=== PATIENT | female | born 1980 | race American Indian/Alaskan Native ===

== ENCOUNTER 2016-12-25 10:30 | Inpatient (IN) | payer MEDICAID ==
[2017-01-01] MEDS ORDERED: cefOXitin 2 GM Vial ONE (06:36)
[2017-01-01] MEDS ORDERED: fentaNYL 250 MCG/5 ML SDV ONE ×3 (07:14→10:36)
[2017-01-01] MEDS ORDERED: Ondansetron 4 MG/2 ML SDV ONE (07:15)
[2017-01-01] MEDS ORDERED: Neostigmine Methylsulfate 1 MG/ML 5 ML Syringe ONE (07:15)
[2017-01-01] MEDS ORDERED: Succinylcholine/Normal Saline 200 MG/10 ML Syringe ONE (07:15)
[2017-01-01] MEDS ORDERED: Rocuronium 50 MG/5 ML Vial ONE ×2 (07:15→10:14)
[2017-01-01] MEDS ORDERED: Dexamethasone 4 MG/ML SDV ONE (07:15)
[2017-01-01] MEDS ORDERED: Propofol 200 MG/20 ML SDV ONE (07:15)
[2017-01-01] MEDS ORDERED: Lactated Ringers 1,000 ML ONE (07:19)
[2017-01-01] MEDS ORDERED: Scopolamine 1.5 MG Transdermal Patch TRDERM PRN (07:30)
[2017-01-01] MEDS ORDERED: Celecoxib 200 MG Cap PO ONE (07:30)
[2017-01-01] MEDS ORDERED: Dextrose 5%-Lactated Ringers 1,000 ML IV SCH (07:30)
[2017-01-01] MEDS ORDERED: Acetaminophen 500 MG Tab PO ONE (07:30)
[2017-01-01] MEDS ORDERED: Gabapentin 300 MG Cap PO ONE (07:30)
[2017-01-01] MEDS ORDERED: Lidocaine 2% 100 MG/5 ML Syringe IVPUSH ONE (09:00)
[2017-01-01] MEDS ORDERED: cefOXitin 2 GM in Sodium Chloride 0.9% 50 ML IV ONE (09:00)
[2017-01-01] MEDS ORDERED: Ketamine 500 MG/5 ML MDV IV SCH (09:00)
[2017-01-01] MEDS ORDERED: Ropivacaine 60 ML, Dexamethasone 8 MG, EPINEPHrine 0.4 MG, Sodium Chloride 0.9% 17.6 ML NERVRT SCH ×4 (09:00)
[2017-01-01] MEDS ORDERED: Labetalol 20 MG/4 ML Syringe ONE (11:07)
[2017-01-01] MEDS ORDERED: hydrOXYzine HCl 50 MG/ML SDV IM ONE (12:02)
[2017-01-01] MEDS ORDERED: HYDROmorphone 1 MG/ML Syringe IVPUSH PRN (12:45)
[2017-01-01] MEDS: Lidocaine 0.4%/D5W 2 GM/500 ML BAG IV SCH (13:00)
[2017-01-01] MEDS ORDERED: SCOPOLAMINE PATCH ASK TOP SCH (13:18)
[2017-01-01] MEDS ORDERED: hydrOXYzine HCl 50 MG/ML SDV IM PRN (13:18)
[2017-01-01] MEDS ORDERED: Metoclopramide 10 MG/2 ML SDV IVPUSH PRN (13:18)
[2017-01-01] MEDS ORDERED: Ondansetron 4 MG/2 ML SDV IVPUSH PRN (13:18)
[2017-01-01] MEDS ORDERED: diphenhydrAMINE 50 MG/ML SDV IVPUSH PRN (13:18)
[2017-01-01] MEDS ORDERED: Insulin Aspart 100 Units/ML 3 ML Pen SUBCUT PRN (13:18)
[2017-01-01] MEDS: Labetalol 20 MG/4 ML Syringe IVPUSH PRN ×2 (13:20→14:40)
[2017-01-01] MEDS: Pantoprazole 40 MG Vial IVPUSH SCH (13:59)
[2017-01-01] MEDS: Gabapentin 250 MG/5 ML Solution ML 470 ML Bottle PO SCH ×2 (13:59→20:37)
[2017-01-01] MEDS: Dextrose 5%-Lactated Ringers 1,000 ML IV SCH (14:43)
[2017-01-01] MEDS ORDERED: MVI, Adult with Vitamin K 10 ML, Thiamine 200 MG, Chromium/Copper/Mang/Selen/Zn 1 ML in... IV SCH ×4 (16:00)
[2017-01-01] MEDS: cefOXitin 2 GM in Sodium Chloride 0.9% 50 ML IV SCH ×2 (17:26→22:11)
[2017-01-01] MEDS: Acetaminophen Soln 650 MG/20.3 ML UD Cup PO SCH ×2 (17:27→22:11)
[2017-01-01] MEDS: Heparin Sodium 5,000 Units/ML Vial SUBCUT SCH (17:27)
[2017-01-02] MEDS: Dextrose 5%-Lactated Ringers 1,000 ML IV SCH (00:19)
[2017-01-02] MEDS: Labetalol 20 MG/4 ML Syringe IVPUSH PRN ×4 (01:11→12:19)
[2017-01-02] MEDS: Heparin Sodium 5,000 Units/ML Vial SUBCUT SCH ×3 (02:04→18:12)
[2017-01-02] MEDS: Lidocaine 0.4%/D5W 2 GM/500 ML BAG IV SCH (02:05)
[2017-01-02] MEDS: cefOXitin 2 GM in Sodium Chloride 0.9% 50 ML IV SCH ×2 (03:09→09:05)
[2017-01-02] MEDS ORDERED: Iohexol 647 MG/ML 50 ML SDV PO STA (03:58)
[2017-01-02] MEDS: Acetaminophen Soln 650 MG/20.3 ML UD Cup PO SCH ×4 (04:25→21:01)
[2017-01-02] MEDS ORDERED: Dextrose 5%-Lactated Ringers 1,000 ML IV SCH (07:15)
[2017-01-02] MEDS ORDERED: Ondansetron 4 MG Tab.DIS PO PRN (07:17)
--- NOTE | 2017-01-02 07:47 | PN ---
DATE OF SERVICE: 01/02/2017 SUBJECTIVE: Radha is postop day #1, her upper GI was normal, this morning, she has been up ambulating. Pain has been controlled. She did receive Dilaudid x1 IV, hemoglobin A1c was 6.4, ANTHONY drain put out 130 mL of a light pink serous drainage. She received labetalol 5 times since she has been out of surgery. Blood pressures were elevated in the 150s to 160s over 90s. REVIEW OF SYSTEMS: Remainder of review of systems negative for any pertinent positives and negatives. OBJECTIVE: GENERAL: Radha Ring is a pleasant 36-year-old female. VITAL SIGNS: TPR is 98.7, 94, 18, blood pressure 168/93. HEENT: Negative. NECK: Supple. HEART: Regular rate and rhythm. LUNGS: Clear. ABDOMEN: Dressings dry and intact. Abdominal binder is on. ANTHONY drain intact. EXTREMITIES: Without peripheral edema. ASSESSMENT: 1. Laparoscopic Susana-en-Y gastric bypass surgery, liver biopsy, repair of diaphragmatic hernia, and small bowel resection for morbid obesity, hepatomegaly, diaphragmatic hernia, foreshortened small bowel mesentery on 01/01/2017. 2. Diabetes type 2, uncontrolled. 3. Depression. PLAN: 1. Vital signs every 4 hours. 2. Step-2 gastric bypass diet without cereal. 3. Discontinue continuous pulse ox and cardiac monitoring after lidocaine is in. Dressing off, may shower. Decrease IV to 40 mL/hour, convert IV to saline lock if oral intake is adequate, and Lexapro 20 mg p.o. daily. 4. Good pulmonary toilet encouraged. 5. We will evaluate p.r.n. or in a.m. Bertha Sena PA-C /[id number]
[2017-01-02] MEDS: Celecoxib 200 MG Cap PO SCH (08:14)
--- NOTE | 2017-01-02 08:46 | CR ---
UGI wo KUB HISTORY: eval R-Y GBP FINDINGS: After administration of oral contrast, upright views were obtained. Post operative changes gastric bypass. Surgical drains in place. No evidence for leak. Contrast passes freely into proxima l small bowel loops. IMPRESSION: No evidence for leak or obstruction.
[2017-01-02] MEDS: SCOPOLAMINE PATCH CHECK TOP SCH (09:01)
[2017-01-02] MEDS: Escitalopram 20 MG Tab PO SCH (09:06)
[2017-01-02] MEDS: Gabapentin 250 MG/5 ML Solution ML 470 ML Bottle PO SCH ×3 (09:06→21:01)
[2017-01-02] MEDS: Magnesium Hydroxide 400 MG/5 ML Susp 30 ML Cup PO PRN (11:11)
[2017-01-02] MEDS: Sennosides 8.6 MG Tab PO PRN (11:50)
[2017-01-02] MEDS ORDERED: MVI, Adult with Vitamin K 10 ML, Thiamine 200 MG, Chromium/Copper/Mang/Selen/Zn 1 ML in... IV SCH ×4 (16:00)
[2017-01-02] MEDS: Pantoprazole 40 MG Vial IVPUSH SCH (16:08)
[2017-01-03] MEDS: Heparin Sodium 5,000 Units/ML Vial SUBCUT SCH ×2 (03:08→10:23)
[2017-01-03] MEDS: Acetaminophen Soln 650 MG/20.3 ML UD Cup PO SCH ×2 (03:08→10:23)
[2017-01-03] MEDS ORDERED: Cyanocobalamin (Vitamin B12) 1,000 MCG/ML SDV IM ONE (09:00)
[2017-01-03] MEDS: SCOPOLAMINE PATCH CHECK TOP SCH (09:04)
[2017-01-03] MEDS: Escitalopram 20 MG Tab PO SCH (09:04)
[2017-01-03] MEDS: Celecoxib 200 MG Cap PO SCH (09:04)
[2017-01-03] MEDS: Gabapentin 250 MG/5 ML Solution ML 470 ML Bottle PO SCH ×2 (09:04→14:11)
[2017-01-03] MEDS: Magnesium Hydroxide 400 MG/5 ML Susp 30 ML Cup PO PRN (09:12)
[2017-01-03] MEDS: Sennosides 8.6 MG Tab PO PRN (09:12)
[2017-01-03 10:50] VITALS: BP 152/86
--- NOTE | 2017-01-04 01:57 | DISCH ---
ADMISSION DIAGNOSES: Morbid obesity, prediabetic, and depression. DISCHARGE DIAGNOSES: 1. Laparoscopic Susana-en-Y gastric bypass surgery, liver biopsy, repair of diaphragmatic hernia, small bowel resection for morbid obesity, hepatomegaly, and diaphragmatic hernia, foreshortened small bowel mesentery, morbid obesity, and hepatomegaly. Date of surgery 01/01/2017. 2. Diabetes type 2, uncontrolled. 3. Depression. HISTORY: Radha Barakat is a 36-year-old female with longstanding history of morbid obesity and increasingly comorbidities. After preoperative evaluation and discussion of possible risks and possible complications, she wished to proceed with surgical procedure. HOSPITAL COURSE: Radha had her surgery on 01/01/2017. She had no operative complications on postop day. On postop day #1, she did receive 5 doses of labetalol for elevated blood pressure. Her upper GI was normal. She received dietary instruction. Pain was controlled. Her activity was good. On postop day #2, blood sugars were 130 and 118 and she was able to be discharged home. PHYSICAL EXAMINATION: GENERAL: Radha Ring is a 36-year-old female. VITAL SIGNS: Height is 5 feet 6.5 inches, weight is 341 pounds. TPR 96.3, 81, 16, and blood pressure 132/66. HEENT: Negative. NECK: Supple. HEART: Regular rate and rhythm. LUNGS: Clear. ABDOMEN: Sutures in place. 4x4s over ANTHONY drain site and abdominal binder is on. EXTREMITIES: Without peripheral edema. DISPOSITION: Discharged to home. CONDITION: Stable and improving. FOLLOWUP APPOINTMENT: With Bertha Sena PA-C, on 01/13/2017 at 10:00 a.m. DISCHARGE MEDICATIONS: Home medications: 1. Tylenol 650 mg p.o. liquid q.6 hours for 2 weeks. 2. Celebrex 200 mg p.o. daily, #14. 3. Zofran ODT 4 mg sublingual q.4 hours p.r.n. nausea, #30. 4. Milk of magnesia 30 mL, two were sent home with patient. 5. Sennosides 8.6 mg p.o. b.i.d. 6. Multivitamin chewable 1 b.i.d. 7. Vitamin B12 at 1000 mcg sublingual daily. She is to continue Lexapro 20 mg p.o. daily. Discontinue the calcium, vitamin D3, ibuprofen, and metformin. DIET: After discharge, step-2 gastric bypass diet without cereal for 2 weeks. ACTIVITY: No lifting greater than 10 pounds for 2 weeks. Activity, walk 8 times daily for short distance. DISCHARGE INSTRUCTIONS: Shower/bathing, may shower. Keep incision clean and dry. Wear abdominal binder for 2 weeks, and then as tolerated. SPECIAL INSTRUCTIONS: Notify provider if any fever, increased pain, nausea, or vomiting. Use incentive spirometer 10 times every hour while awake.
--- NOTE | 2017-01-07 07:40 | OR ---
CORRECTED COPY DATE OF PROCEDURE: 01/01/2017 PREOPERATIVE DIAGNOSIS: Morbid obesity. POSTOPERATIVE DIAGNOSES: 1. Morbid obesity. 2. Marked hepatomegaly. 3. Paraesophageal diaphragmatic hernia. 4. Foreshortened small bowel mesentery requiring bowel resection to allow satisfactory mobility of jejunojejunostomy. OPERATIVE PROCEDURE: 1. Laparoscopic Susana-en-Y gastric bypass with long limb gastroenterostomy (18226). 2. Needle liver biopsy (94633). 3. Repair of paraesophageal diaphragmatic hernia (87565). 4. Small bowel resection (33488). ANESTHESIA: General plus a transversus abdominis plane block. FLOTATION TANK OPERATOR: Bertha Sena PA-C and Ida ANAYA student. INDICATION FOR PROCEDURE: A 36-year-old presenting with longstanding morbid obesity and increasingly significant comorbidities. After preoperative evaluation and discussion, she wished to proceed with a gastric bypass procedure. Potential risks of the procedure including bleeding, infection, leaks from various GI tract closures, problems with bowel obstruction over time as well as possibility of cardiopulmonary, septic, or hemorrhagic complications leading to were discussed, and the patient wishes to proceed. DETAILS OF PROCEDURE: The patient was taken to the operating room after general endotracheal anesthesia was induced, was placed in a lithotomy position. The abdomen was then prepped and draped, and using continuous ultrasound guidance, bilateral subcostal transversus abdominis plane blocks were placed in the subcostal location. Upon completion of that, oral gastric tube was placed, and the area was prepped and draped. At 15 cm inferior, 5 cm left of xiphoid process, a transverse incision was made and the peritoneal cavity was entered under direct vision evacuation with an Optiview trocar, inflated to 15 mmHg pressure of CO2. Laparoscope was then reinserted, and no underlying trocar insertion site injuries were seen. Following this, 5 additional trocars were placed across her mid abdomen and general exploration was undertaken. The patient was noted to have marked hepatomegaly with liver volume being roughly 2 to 3 times normal. Liver grossly fatty infiltrated. Miguel-Cut needle biopsies were obtained from left lobe of the liver. Minimal bleeding from biopsy sites was controlled with electrocautery. At this point, the omentum was divided in the midline up to the level of the transverse colon. This allowed identification of the small bowel to the ligament of Treitz. Small bowel was then traced out 200 cm distal to that point, it was divided transversely with a ANNA stapler. Small bowel was then traced out additional 200 cm where the [id number] enteroenterostomy was accomplished with internal firing of the Endo-ANNA 60 mm stapler. The common opening was then closed transversely with the same stapler and angles were anastomosed and mesenteric defect approximated with some 0 Ethibond stitch along with fibrin sealant. During the formation of this anastomosis, it became evident that the mesentery was fairly foreshortened and the jejunojejunostomy if made using standard approach would be likely insufficiently mobile or at least putting the gastrojejunostomy at risk due to tension; given this a roughly 12 cm segment of the biliopancreatic limb was resected distally thus being in the abdomen, then divided with a ANNA stapler and the mesentery divided with Harmonic scalpel. The specimen was delivered from the field and subsequent anastomosis was referred to above was completed. This resulted in a very nicely mobile jejunojejunostomy with the Susana limb, then easily coming up into the area of the esophagogastric junction with minimal tension. At this point, the liver was retracted anteriorly, and the patient was noted to have a moderate-sized paraesophageal diaphragmatic hernia with prolapse of portion of the gastric fundus and perigastric fat in a plane anterior to the course of the esophagus. This was reduced and the peritoneum over the hernia was incised and reflected downward and an anterior repair of the diaphragmatic hernia was accomplished with 0-Ethibond sutures reinforced with PTFE pledgets. At this point, the gastrointestinal catheter was inflated to 15 mL and pulled up snugly against the EG junction, gastric wall over the apex balloon was then marked with electrocautery, and balloon catheter deflated and pulled up from the esophagus. The lesser omental tissue adjacent to gastric cardia was then incised allowing dissection behind the stomach at that level. The pouch formation was then initiated with a transverse firing of the ANNA stapler at the level of the cauterize britt in the gastric cardia and then completed with 2 additional firings of ANNA stapler up to and through the angle of His. Upon completion of the pouch, both staple lines were noted to be intact. The anvil of a 21-mm EEA stapler was attached to [place] sump type tube. The latter was brought down through the mouth and taken out through a small opening in the gastric pouch, allowing the anvil likewise to be pulled down to within the gastric pouch. The Susana limb was then opened and the body of the EEA stapler passed several cm into the Susana limb brought up the anvil area uniting with the screening gastrojejunostomy. Upon removal of the stapler, double donuts of mucosa were noted and the small bowel was closed off with a vascular staple line. Gastrojejunostomy was reinforced with some 3-0 Vicryl seromuscular stitch along with fibrin sealant. Leak test was accomplished with injection of 120 mL of air in the gastric pouch while submerged with cefoxitin-containing saline solution. No leaks were identified. Two Jacques-Adams drains were then placed adjacent to the gastrojejunostomy taken out subcostal trocar sites with no further problems noted. Trocars were removed. The peritoneal cavity was deflated. The incision was closed with some 6-0 Vicryl skin stitch. Drains were affixed with some 4-0 Vicryl stitch and the patient was taken to the recovery room in satisfactory condition. There were no other complications. Physician clinical project assistant, Bertha Sena, played an essential role in assisting in this case, helping to position the patient, retract structures as needed, as well as suturing and cutting sutures as indicated, her presence improved the patient's safety and decreased operative time. Quinn Looney MD /[id number]
== END 2017-01-03 14:20 | disposition home or self-care (01) | DRG 621 ==
LOC: JP.SDS 01-01 07:16 → JP.MS 01-01 07:16 → EDSTATUS 01-01 09:00 → JP.2SS 01-01 11:45
PROVIDERS: ADMIT Surgery; ATTEND Surgery
PROC: 0BQR4ZZ (ICD-10-PCS; principal; 2017-01-01)
PROC: 0FB24ZX Excision of Left Lobe Liver, Percutaneous Endoscopic Approach, Diagnostic (ICD-10-PCS; principal; 2017-01-01)
PROC: 0BQS4ZZ (ICD-10-PCS; principal; 2017-01-01)
PROC: 0DB94ZX Excision of Duodenum, Percutaneous Endoscopic Approach, Diagnostic (ICD-10-PCS; principal; 2017-01-01)
PROC: 0DV64CZ Restriction of Stomach with Extraluminal Device, Percutaneous Endoscopic Approach (ICD-10-PCS; principal; 2017-01-01)
PROC: 3E0T3BZ Introduction of Anesthetic Agent into Peripheral Nerves and Plexi, Percutaneous Approach (ICD-10-PCS; principal; 2017-01-01)
DX: E66.01 Morbid (severe) obesity due to excess calories (principal); Z68.43 Body mass index [BMI] 50.0-59.9, adult; R16.0 Hepatomegaly, not elsewhere classified; K44.9 Diaphragmatic hernia without obstruction or gangrene; E11.65 Type 2 diabetes mellitus with hyperglycemia; Z79.84 Long term (current) use of oral hypoglycemic drugs; F17.210 Nicotine dependence, cigarettes, uncomplicated; G47.33 Obstructive sleep apnea (adult) (pediatric); F32.9 Major depressive disorder, single episode, unspecified
CPT/HCPCS: 36415; 74240; 74240-26; 82962; 83036; 86850; 86900; 86901; 88305; 88307; 88313; 94762; A9270-GY; C9113; J0171; J0694; J1100; J1170; J1644; J2001; J2405; J2704; J2795; J3010; J3410; J3411; J3420; J7030; J7040; J7042; J7050; J7120; Q9967